=== PATIENT | female | born 1950 | race American Indian/Alaskan Native ===

== ENCOUNTER 2020-02-19 11:57 | Emergency (ER) | payer MEDICARE, OTHER ==
[2020-02-19] MEDS ORDERED: cloNIDine 0.1 MG TAB PO ONE (12:10)
--- NOTE | 2020-02-19 12:13 | Emergency Department Report ---
ED General Adult HPI - General Chief complaint: High BP Stated complaint: BP HIGH Time Seen by Provider: 02/19/20 12:03 Source: patient, family Mode of arrival: Ambulatory Limitations: No Limitations - History of Present Illness Initial comments: Patient is 69 years old female with history of hypertension. Patient presented to the ER stating that her blood pressures been running really high. Patient stated that she is compliant with her medication. patient stated that she is taking amlodipine and losartan but she does not know the dose. Patient denies any headache, neck pain, chest pain, weakness numbness or tingling sensation. No bowel or bladder incontinence. Patient found to have a blood pressure of 191/100. - Related Data Allergies Allergy/AdvReac Type Severity Reaction Status Date / Time No Known Allergies Allergy Unverified 02/19/20 11:58 ED Review of Systems ROS: Stated complaint: BP HIGH Other details as noted in HPI Comment: All other systems reviewed and negative Constitutional: denies: chills, fever Respiratory: denies: cough, shortness of breath, SOB with exertion Cardiovascular: denies: chest pain Gastrointestinal: denies: abdominal pain, nausea, vomiting, diarrhea, constipation, hematemesis, melena, hematochezia Musculoskeletal: denies: back pain Neurological: denies: headache, weakness, numbness, paresthesias, confusion ED Past Medical Hx - Past Medical History Previous Medical History?: Yes Hx Hypertension: Yes Additional medical history: HLN - Surgical History Past Surgical History?: No - Social History Smoking Status: Never Smoker Substance Use Type: Prescribed ED Physical Exam - General Limitations: No Limitations General appearance: alert, in no apparent distress - Head Head exam: Present: atraumatic, normocephalic, normal inspection - Eye Eye exam: Present: normal appearance, PERRL - ENT ENT exam: Present: normal exam, normal orophraynx, mucous membranes moist - Neck Neck exam: Present: normal inspection, full ROM. Absent: tenderness, meningismus, lymphadenopathy, thyromegaly - Respiratory Respiratory exam: Present: normal lung sounds bilaterally - Cardiovascular Cardiovascular Exam: Present: regular rate, normal rhythm, normal heart sounds - GI/Abdominal GI/Abdominal exam: Present: soft, normal bowel sounds. Absent: distended, tenderness, guarding, rebound, rigid, organomegaly, mass, bruit, pulsatile mass, hernia - Extremities Exam Extremities exam: Present: normal inspection, full ROM, normal capillary refill. Absent: calf tenderness - Back Exam Back exam: Present: normal inspection, full ROM. Absent: CVA tenderness (R), CVA tenderness (L) - Neurological Exam Neurological exam: Present: alert, oriented X3, CN II-XII intact, normal gait, reflexes normal. Absent: motor sensory deficit - Psychiatric Psychiatric exam: Present: normal mood - Skin Skin exam: Present: warm, intact, normal color ED Course Vital Signs 02/19/20 02/19/20 02/19/20 11:59 12:09 12:15 Temperature 98.1 F Pulse Rate 103 H 82 Respiratory 18 Rate Blood Pressure 191/100 181/94 164/75 Blood Pressure [Left] O2 Sat by Pulse 95 98 Oximetry 02/19/20 02/19/20 02/19/20 12:30 12:45 13:00 Temperature Pulse Rate Respiratory Rate Blood Pressure 159/88 150/73 131/65 Blood Pressure [Left] O2 Sat by Pulse 99 98 96 Oximetry 02/19/20 02/19/20 13:16 14:00 Temperature 98.0 F Pulse Rate 71 Respiratory 20 Rate Blood Pressure 131/65 Blood Pressure 124/81 [Left] O2 Sat by Pulse 98 100 Oximetry ED Medical Decision Making - Lab Data Result diagrams: 02/19/20 12:13 02/19/20 12:13 - Medical Decision Making Patient is 69 years old female with history of hypertension. Patient presented to the ER stating that her blood pressures been running really high. Patient stated that she is compliant with her medication. patient stated that she is taking amlodipine and losartan but she does not know the dose. Patient denies any headache, neck pain, chest pain, weakness numbness or tingling sensation. No bowel or bladder incontinence. Patient found to have a blood pressure of 191/100. Patient received clonidine 0.1 mg blood pressure improved significantly. Patient current blood pressure is 124/80. Patient still denying any chest pain, shortness of breath, headache or weakness. Patient advised to increase her amlodipine to 10 mg and advised to follow-up with her primary care physician in the next 2 to 3 days and to return to the ER if she develop any new symptoms. Critical care attestation.: If time is entered above; I have spent that time in minutes in the direct care of this critically ill patient, excluding procedure time. ED Disposition Clinical Impression: Malignant hypertension Disposition: DC-01 TO HOME OR SELFCARE Is pt being admited?: No Condition: Stable Instructions: Hypertension (ED) Referrals: [facility] [Provider Group] - 3-5 Days
[2020-02-19 12:25] LABS: Basophils # (Auto) 0.1 K/mm3 (0.0-0.1); Eosinophils % (Auto) 0.1 % (0.0-4.3); Hematocrit 39.8 % (30.3-42.9); Hemoglobin 13.8 gm/dl (10.1-14.3); Lymphocytes # (Auto) 1.7 K/mm3 (1.2-5.4); Mean Corpuscular HGB Conc 35 % (30-34); Mean Corpuscular Volume 89 fl (79-97); Monocytes # (Auto) 0.4 K/mm3 (0.0-0.8); Monocytes % (Auto) 7.4 % (0.0-7.3); Platelet Count 290 K/mm3 (140-440); Red Cell Distribution Width 13.7 % (13.2-15.2)
[2020-02-19 12:40] LABS: Alanine Aminotransferase 7 units/L (7-56); Albumin 4.7 g/dL (3.9-5); BUN/Creatinine Ratio 14; Blood Urea Nitrogen 7 mg/dL (7-17); Calcium 10.1 mg/dL (8.4-10.2); Hemolysis Index 9
[2020-02-19 13:50] LABS: Bilirubin,Urine NEG (Negative); Blood,Urine NEG (Negative); Color,Urine Straw (Yellow); Protein,Urine <15 mg/dL mg/dL (Negative); Urobilinogen,Urine < 2.0 mg/dL (<2.0)
[2020-02-19 14:02] VITALS: BP 124/81
== END 2020-02-19 14:30 | disposition home or self-care (01) ==
LOC: ED 11:57
DX: I10 Essential (primary) hypertension (principal); R78.5 Finding of other psychotropic drug in blood
CPT/HCPCS: 36415; 80053; 81001; 85025; 99283

== ENCOUNTER 2020-03-16 23:13 | Emergency (ER) | payer MEDICARE, OTHER ==
--- NOTE | 2020-03-17 00:03 | XRay Report ---
CHEST 2 VIEWS INDICATION: MAIN: SOB x1.5months. COMPARISON: None. FINDINGS: Support devices: None. Heart: Within normal limits. Lungs/Pleura: No acute air space or interstitial disease. No significant pleural effusion. IMPRESSION: No acute findings. Signer Name: Hira Laurent MD Signed: 03/16/2020 11:58 PM Workstation Name: [id number]
[2020-03-17 00:15] LABS: Basophils % (Auto) 0.7 % (0.0-1.8); Eosinophils # (Auto) 0.1 K/mm3 (0.0-0.4); Eosinophils % (Auto) 0.8 % (0.0-4.3); Hematocrit 37.3 % (30.3-42.9); Hemoglobin 12.4 gm/dl (10.1-14.3); Lymphocytes # (Auto) 2.5 K/mm3 (1.2-5.4); Lymphocytes % (Auto) 38.3 % (13.4-35.0); Mean Corpuscular HGB Conc 33 % (30-34); Mean Corpuscular Volume 88 fl (79-97); Monocytes # (Auto) 0.5 K/mm3 (0.0-0.8); Monocytes % (Auto) 7.8 % (0.0-7.3); Platelet Count 289 K/mm3 (140-440); Red Blood Count 4.24 M/mm3 (3.65-5.03); Red Cell Distribution Width 14.1 % (13.2-15.2)
[2020-03-17 00:19] LABS: Alanine Aminotransferase 13 units/L (7-56); Albumin 4.5 g/dL (3.9-5); BUN/Creatinine Ratio 14; Blood Urea Nitrogen 10 mg/dL (7-17); Calcium 10.3 mg/dL (8.4-10.2); Hemolysis Index 4
--- NOTE | 2020-03-17 00:59 | Emergency Department Report ---
ED General Adult HPI - General Chief complaint: Dyspnea/Respdistress Stated complaint: SHORTNESS OF BREATH Source: patient Mode of arrival: Ambulatory Limitations: No Limitations - History of Present Illness Initial comments: Patient is a 69-year-old -Citizen Of [place] female with a history of hypertension who presents to the ED with complaint of acute onset persistent nasal and sinus congestion, mild dry cough and sore throat with generalized weakness for the last 1 week. Patient states that she has also had lack of appetite, with frontal sinus pressure. Patient denies dizziness, syncope, chest pain, shortness of breath, abdominal pain, dysuria, urinary frequency and urgency, diarrhea, nausea and vomiting, fever and chills, palpitations, seizures, numbness and tingling or weakness of upper and lower extremities bilaterally or headache. MD Complaint: Nasal and sinus congestion; dry cough; generalized weakness -: Sudden, week(s) (1) Location: head, chest Radiation: non-radiation Severity scale (0 -10): 4 Quality: aching, dull Consistency: constant Improves with: none Worsens with: none Associated Symptoms: denies other symptoms, cough, loss of appetite, malaise, weakness. denies: confusion, chest pain, diaphoresis, fever/chills, headaches, nausea/vomiting, rash, seizure, shortness of breath, syncope, other Treatments Prior to Arrival: none - Related Data Previous Rx's Medication Instructions Recorded Last Taken Type Azithromycin [Zithromax Z-JOON] 250 mg PO DAILY #6 tablet 03/17/20 Unknown Rx Benzonatate [Tessalon Perles] 100 mg PO Q8HR #21 capsule 03/17/20 Unknown Rx Cetirizine HCl [Zyrtec 10mg tab] 10 mg PO DAILY #20 tablet 03/17/20 Unknown Rx Allergies Allergy/AdvReac Type Severity Reaction Status Date / Time No Known Allergies Allergy Unverified 02/19/20 11:58 ED Review of Systems ROS: Stated complaint: SHORTNESS OF BREATH Other details as noted in HPI Constitutional: denies: chills, fever Eyes: denies: eye pain, eye discharge, vision change ENT: throat pain, congestion. denies: ear pain Respiratory: cough, shortness of breath. denies: wheezing Cardiovascular: denies: chest pain, palpitations, dyspnea on exertion, syncope, paroxysmal nocturnal dyspnea Endocrine: no symptoms reported Gastrointestinal: denies: abdominal pain, nausea, vomiting, diarrhea Genitourinary: denies: urgency, dysuria, frequency, discharge Musculoskeletal: denies: back pain, joint swelling, arthralgia Skin: denies: rash, lesions Neurological: denies: headache, weakness, paresthesias Psychiatric: denies: anxiety, depression Hematological/Lymphatic: denies: easy bleeding, easy bruising ED Past Medical Hx - Past Medical History Hx Hypertension: Yes Additional medical history: HIGH CHOLESTEROL - Surgical History Past Surgical History?: No - Social History Smoking Status: Never Smoker Substance Use Type: None - Medications Home Medications: Home Medications Medication Instructions Recorded Confirmed Last Taken Type Azithromycin [Zithromax Z-JOON] 250 mg PO DAILY #6 tablet 03/17/20 Unknown Rx Benzonatate [Tessalon Perles] 100 mg PO Q8HR #21 capsule 03/17/20 Unknown Rx Cetirizine HCl [Zyrtec 10mg tab] 10 mg PO DAILY #20 tablet 03/17/20 Unknown Rx ED Physical Exam - General Limitations: No Limitations General appearance: alert, in no apparent distress - Head Head exam: Present: atraumatic, normocephalic, normal inspection - Eye Eye exam: Present: normal appearance, PERRL, EOMI Pupils: Present: normal accommodation - ENT ENT exam: Present: normal exam, normal orophraynx, mucous membranes moist, TM's normal bilaterally, normal external ear exam - Neck Neck exam: Present: normal inspection, full ROM - Respiratory Respiratory exam: Present: normal lung sounds bilaterally. Absent: respiratory distress, wheezes, rales, rhonchi, stridor, chest wall tenderness, accessory muscle use, decreased breath sounds - Cardiovascular Cardiovascular Exam: Present: regular rate, normal rhythm, normal heart sounds. Absent: systolic murmur, diastolic murmur, rubs, gallop - GI/Abdominal GI/Abdominal exam: Present: soft, normal bowel sounds. Absent: tenderness, guarding, hyperactive bowel sounds, hypoactive bowel sounds, organomegaly - Extremities Exam Extremities exam: Present: normal inspection, full ROM, normal capillary refill - Back Exam Back exam: Present: normal inspection, full ROM. Absent: tenderness, CVA tenderness (R), muscle spasm, paraspinal tenderness, vertebral tenderness - Neurological Exam Neurological exam: Present: alert, oriented X3, CN II-XII intact, normal gait, reflexes normal - Psychiatric Psychiatric exam: Present: normal affect, normal mood - Skin Skin exam: Present: warm, dry, intact, normal color. Absent: rash ED Course Vital Signs 03/16/20 23:19 Temperature 98.4 F Pulse Rate 76 Respiratory 16 Rate Blood Pressure 120/98 O2 Sat by Pulse 97 Oximetry ED Medical Decision Making - Lab Data Result diagrams: 03/16/20 23:38 03/16/20 23:38 - EKG Data EKG shows normal: sinus rhythm Rate: normal - EKG Data Interpretation: normal EKG - Radiology Data Radiology results: report reviewed, image reviewed Findings [facility] [address] [place] [address] XRay Report Signed Patient: JENNY WEN MR#: [id number] : 1950 Acct:[id number] Age/Sex: 69 / F ADM Date: 03/16/20 Loc: ED Attending Dr: Ordering Physician: LAYO ARMANDO III, MD Date of Service: 03/16/20 Procedure(s): XR chest routine 2V Accession Number(s): [id number] cc: LAYO ARMANDO III, MD Fluoro Time In Minutes: CHEST 2 VIEWS INDICATION: MAIN: SOB x1.5months. COMPARISON: None. FINDINGS: Support devices: None. Heart: Within normal limits. Lungs/Pleura: No acute air space or interstitial disease. No significant pleural effusion. IMPRESSION: No acute findings. Signer Name: Hira Laurent MD Signed: 03/16/2020 11:58 PM Workstation Name: [id number] Transcribed By: ES Dictated By: Hira Laurent MD Electronically Authenticated By: Hira Laurent MD Signed Date/Time: 03/16/202357 DD/ 57 TD/TT: - Medical Decision Making This is a 69-year-old -Citizen Of [place] female with a history of hypertension who presents to the ED with complaint of acute onset persistent nasal and sinus congestion, mild dry cough and sore throat with generalized weakness for the last 1 week. Patient states that she has also had lack of appetite, with frontal sinus pressure. In the ED, patient is alert and oriented x3 and is not in distress. Rapid influenza and rapid strep test were negative. Chest x-ray shows no acute cardiopulmonary abnormalities or pneumonitis. Lab test results were reviewed and are all nonactionable. Patient was discharged home and advised to follow-up with her primary care physician in 3 to 5 days for reevaluation. - Differential Diagnosis Pneumonia; UTI; Pharyngitis; URI; Sinusitis Critical care attestation.: If time is entered above; I have spent that time in minutes in the direct care of this critically ill patient, excluding procedure time. ED Disposition Clinical Impression: Acute upper respiratory infection Acute bronchitis Qualifiers: Bronchitis organism: other organism Qualified Code(s): J20.8 - Acute bronchitis due to other specified organisms Disposition: DC- TO HOME OR SELFCARE Is pt being admited?: No Does the pt Need Aspirin: No Condition: Stable Instructions: Upper Respiratory Infection (ED), Acute Bronchitis (ED) Additional Instructions: Take medications with food, drink plenty of fluids and follow-up with your primary care physician in 5 to 7 days for reevaluation. Return to the ED immediately if symptoms get worse. Prescriptions: Benzonatate [Tessalon Perles] 100 mg PO Q8HR #21 capsule Azithromycin [Zithromax Z-JOON] 250 mg PO DAILY #6 tablet Cetirizine HCl [Zyrtec 10mg tab] 10 mg PO DAILY #20 tablet Referrals: JÚNIOR HOFFMAN MD [Staff Physician] - 3-5 Days Time of Disposition: 02:56 Print Language: PERSIAN
[2020-03-17 02:10] LABS: Bilirubin,Urine NEG (Negative); Blood,Urine SM (Negative); Color,Urine Colorless (Yellow); Protein,Urine <15 mg/dL mg/dL (Negative); Urobilinogen,Urine < 2.0 mg/dL (<2.0); WBC,Urine < 1.0 /HPF (0.0-6.0)
[2020-03-17 05:28] VITALS: BP 122/94
== END 2020-03-17 03:30 | disposition home or self-care (01) ==
LOC: ED 23:13
DX: J20.8 Acute bronchitis due to other specified organisms (principal); J06.9 Acute upper respiratory infection, unspecified; I10 Essential (primary) hypertension; E78.00 Pure hypercholesterolemia, unspecified; Z79.899 Other long term (current) drug therapy
CPT/HCPCS: 36415; 71046; 80053; 81001; 84484; 85025; 87116; 87400; 87430; 93005